=== PATIENT | female | born 1995 | race American Indian/Alaskan Native ===

== ENCOUNTER 2017-12-25 09:27 | Outpatient (CLI) | payer BC ==
--- NOTE | 2017-12-25 11:49 | Ultrasound Report ---
Pelvic and transvaginal sonography: History: Menorrhagia with irregular cycle. Findings: Uterus measures 8 point 4 x 4 by 5.6 cm. Endometrial thickness 13 mm no mass or fluid within the endometrium. Cyst identified in the lower uterine segment adjacent to the cervix measuring 2.1 cm. Right ovary 2.9 x 1.9 x 2.6 cm. No mass. Left foot 1.9 x 1.4 x 1.9 cm. No mass. Minimal fluid in the cul-de-sac. Impression: Cyst identified at the lower uterine segment adjacent to the cervix.
== END 2017-12-25 09:28 | disposition home or self-care (01) ==
LOC: US 09:27
PROVIDERS: ATTEND Obstetrics & Gynecology
DX: N92.1 Excessive and frequent menstruation with irregular cycle (principal); N85.8 Other specified noninflammatory disorders of uterus
CPT/HCPCS: 76830; 76856